=== PATIENT | female | born 1950 | race Caucasian/White ===

== ENCOUNTER → 2018-03-07 07:13 | Outpatient (CLI) | payer MEDICARE, OTHER, SELFPAY ==
[2018-03-07 08:17] LABS: Add Manual Diff / Slide Review NO; Appearance Urine UA CLEAR; Basophils Percent Auto 1.8 % (0-2); Bilirubin Urine UA NEGATIVE (NEGATIVE); Color Urine UA YELLOW; Eosinophils Percent Auto 10.2 % (2-4); Glucose Urine UA NEGATIVE (Normal); Hematocrit 40.2 % (36-46); Hemoglobin 13.2 g/dL (12.0-16.0); Ketones Urine UA NEGATIVE (NEGATIVE); Leukocyte Esterase Urine UA NEGATIVE (NEGATIVE); Lymphocytes Percent Auto 32.4 % (25-40); Mean Corpuscular HGB Conc 32.9 % (30-36); Mean Corpuscular Hemoglobin 34.2 PG (26-34); Mean Corpuscular Volume 103.9 fL (80-100); Monocytes Percent Auto 9.2 % (3-14); Neutrophils Absolute Auto 2100 /uL (3000-5900); Neutrophils Percent Auto 46.4 % (50-75); Nitrite Urine UA Negative (Negative); Occult Blood Urine UA TRACE-INTACT (Negative); Platelet Count 261 X10^3/uL (150-400); Protein Urine UA NEGATIVE (Negative); Red Blood Cell Count 3.86 X10^6/uL (4.0-5.2); Red Cell Distribution Width 13.2 % (11.6-14.8); Specific Gravity Urine UA 1.015 (1.000-1.035); Urobilinogen Urine UA 0.2 E.U./dL (0.2); White Blood Cell Count 4.5 X10^3/uL (4.5-11.0)
[2018-03-07 08:32] LABS: Alanine Aminotransferase 22 IU/L (9-52); Albumin 4.1 g/dL (3.5-5.0); Albumin Globulin Ratio 1.4 (1.0-2.8); Alkaline Phosphatase 61 U/L (38-126); Aspartate Aminotransferase 30 IU/L (14-36); BUN Creatinine Ratio 17.5 (6-22); Bilirubin Total 0.4 mg/dL (0.2-1.3); Blood Urea Nitrogen 14 mg/dL (7-17); Calcium 9.7 mg/dL (8.4-10.2); Carbon Dioxide 34 mmol/L (22-32); Chloride 106 mmol/L (98-107); Cholesterol 190 mg/dL (140-199); Estimated Glomerular Filt Rate > 60.0 mL/min (>60); Glucose 97 mg/dL (80-110); HDL Cholesterol 71 mg/dL (40-60); HEMOLYSIS < 15 (0-50); LDL Cholesterol Calculated 106 mg/dL (<100); Potassium 4.7 mmol/L (3.4-5.1); Sodium 148 mmol/L (137-145); Total Protein 7.1 g/dL (6.3-8.2); Triglycerides 66 mg/dL (35-150)
[2018-03-07 09:29] LABS: Thyroid Stimulating Hormone 4.17 uIU/mL (0.47-4.68)
== END ==
PROVIDERS: PCP Family Medicine; Visit Provider Family Medicine
DX: E78.5 Hyperlipidemia, unspecified (principal); Z51.81 Encounter for therapeutic drug level monitoring
CPT/HCPCS: 36415; 80053; 80061; 81003; 84443; 85025

== ENCOUNTER → 2018-11-18 09:11 | Outpatient (CLI) | payer MEDICARE, OTHER, SELFPAY ==
--- NOTE | 2018-11-18 | DI.MG.S_ITS ---
BILATERAL DIGITAL SCREENING MAMMOGRAM 3D/2D WITH CAD: 11/18/2018 CLINICAL: Routine screening. Comparison is made to exams dated: 11/13/2017 mammogram, 11/12/2016 mammogram - [facility], and 11/11/2015 mammogram - [facility]. There are scattered fibroglandular elements in both breasts. Current study was also evaluated with a Computer Aided Detection (CAD) system. No significant masses, calcifications, or other findings are seen in either breast. There has been no significant interval change. IMPRESSION: NEGATIVE There is no mammographic evidence of malignancy. A 1 year screening mammogram is recommended. This exam was interpreted at Station ID: [id number]. NOTE: For mammograms, a report in lay terms will be sent to the patient. Approximately 15% of breast malignancies will not be visualized mammographically. In the management of a palpable breast mass, a negative mammogram must not discourage biopsy of a clinically suspicious lesion. Electronically Signed By: David cline/murray:11/18/2018 11:30:46 letter sent: Normal Exam ACR BI-RADS Category 1: Negative 3341F
== END ==
PROVIDERS: Family Provider Family Medicine; PCP Family Medicine; Visit Provider Family Medicine
DX: Z12.31 Encounter for screening mammogram for malignant neoplasm of breast (principal)
CPT/HCPCS: 77063; 77067

== ENCOUNTER → 2019-05-05 08:10 | Outpatient (CLI) | payer MEDICARE, OTHER, SELFPAY ==
[2019-05-05 08:56] LABS: Appearance Urine UA CLEAR; Bilirubin Urine UA NEGATIVE (NEGATIVE); Color Urine UA YELLOW; Glucose Urine UA NEGATIVE (Negative); Ketones Urine UA NEGATIVE (NEGATIVE); Leukocyte Esterase Urine UA NEGATIVE (NEGATIVE); Nitrite Urine UA NEGATIVE (Negative); Occult Blood Urine UA TRACE-INTACT (Negative); Protein Urine UA NEGATIVE (Negative); Specific Gravity Urine UA <=1.005 (1.000-1.035); Urobilinogen Urine UA 0.2 E.U./dL (0.2)
[2019-05-05 08:59] LABS: pH Urine UA 6.5 (4.5-8.0)
[2019-05-05 09:02] LABS: Alanine Aminotransferase 18 IU/L (<35); Albumin 3.9 g/dL (3.5-5.0); Albumin Globulin Ratio 1.4 (1.0-2.8); Alkaline Phosphatase 65 U/L (38-126); Aspartate Aminotransferase 34 IU/L (14-36); Bilirubin Total 0.3 mg/dL (0.2-1.3); Blood Urea Nitrogen 16 mg/dL (7-17); Calcium 9.2 mg/dL (8.4-10.2); Carbon Dioxide 27 mmol/L (22-32); Chloride 104 mmol/L (98-107); Cholesterol 189 mg/dL (140-199); Estimated Glomerular Filt Rate > 60.0 mL/min (>60); Globulin 2.8 g/dL (1.7-4.1); Glucose 96 mg/dL (80-110); HDL Cholesterol 66 mg/dL (40-60); HEMOLYSIS < 15 (0-50); LDL Cholesterol Calculated 111 mg/dL (<100); Potassium 4.3 mmol/L (3.4-5.1); Sodium 137 mmol/L (137-145); Total Protein 6.7 g/dL (6.3-8.2); Triglycerides 61 mg/dL (35-150)
[2019-05-05 09:05] LABS: Hematocrit 36.8 % (36-46); Hemoglobin 12.4 g/dL (12.0-16.0); Mean Corpuscular HGB Conc 33.6 % (30-36); Mean Corpuscular Hemoglobin 33.3 PG (26-34); Mean Corpuscular Volume 99.2 fL (80-100); Platelet Count 288 X10^3/uL (150-400); Red Blood Cell Count 3.71 X10^6/uL (4.0-5.2); Red Cell Distribution Width 13.7 % (11.6-14.8); White Blood Cell Count 5.3 X10^3/uL (4.5-11.0)
[2019-05-05 09:32] LABS: Thyroid Stimulating Hormone 2.76 uIU/mL (0.47-4.68)
[2019-05-05 09:37] LABS: Neutrophils Absolute Manual 3498 /uL (3000-5900); Total Cells Counted 100
[2019-05-05 09:38] LABS: RBC Morphology Normal Morphology
== END ==
PROVIDERS: PCP Family Medicine; Visit Provider Family Medicine
DX: Z13.220 Encounter for screening for lipoid disorders (principal); Z13.29 Encounter for screening for other suspected endocrine disorder; Z51.81 Encounter for therapeutic drug level monitoring; G43.909 Migraine, unspecified, not intractable, without status migrainosus; E78.5 Hyperlipidemia, unspecified
CPT/HCPCS: 36415; 80053; 80061; 81003; 84443; 85025

== ENCOUNTER → 2019-06-18 09:10 | Outpatient (CLI) | payer MEDICARE, OTHER, SELFPAY | PROVIDERS: PCP Family Medicine; Visit Provider Family Medicine | DX: Z00.00 Encounter for general adult medical examination without abnormal findings (principal); M85.852 Other specified disorders of bone density and structure, left thigh; Z78.0 Asymptomatic menopausal state; Z82.62 Family history of osteoporosis | CPT/HCPCS: 77080 ==

== ENCOUNTER → 2019-12-29 08:33 | Outpatient (CLI) | payer MEDICARE, OTHER, SELFPAY ==
--- NOTE | 2019-12-29 | DI.MG.S_ITS ---
BILATERAL DIGITAL SCREENING MAMMOGRAM 3D/2D WITH CAD: 12/29/2019 Comparison is made to exams dated: 11/18/2018 mammogram, 11/13/2017 mammogram, 11/12/2016 mammogram - [facility], 11/11/2015 mammogram, 11/09/2014 mammogram, and 08/19/2012 mammogram - [facility]. There are scattered fibroglandular elements in both breasts. Current study was also evaluated with a Computer Aided Detection (CAD) system. No significant masses, calcifications, or other findings are seen in either breast. There has been no significant interval change. IMPRESSION: NEGATIVE There is no mammographic evidence of malignancy. A 1 year screening mammogram is recommended. This exam was interpreted at Station ID: [id number]. NOTE: For mammograms, a report in lay terms will be sent to the patient. Approximately 15% of breast malignancies will not be visualized mammographically. In the management of a palpable breast mass, a negative mammogram must not discourage biopsy of a clinically suspicious lesion. Electronically Signed By: Basil wyatt/murray:12/29/2019 09:48:52 letter sent: Normal Exam ACR BI-RADS Category 1: Negative 3341F
== END ==
PROVIDERS: PCP Nurse Practitioner; Referring Provider Nurse Practitioner; Visit Provider Nurse Practitioner
DX: Z12.31 Encounter for screening mammogram for malignant neoplasm of breast (principal)
CPT/HCPCS: 77063; 77067

== ENCOUNTER → 2020-04-24 08:28 | Outpatient (CLI) | payer MEDICARE, OTHER, SELFPAY ==
[2020-04-25 16:05] LABS: COVID19 Sendout Not Detected (Not Detect)
== END ==
PROVIDERS: PCP Nurse Practitioner; Visit Provider Physician Assistant
DX: Z11.59 Encounter for screening for other viral diseases (principal)
CPT/HCPCS: 87635

== ENCOUNTER 2020-04-27 07:20 | Day surgery (SDC) | payer MEDICARE, OTHER, SELFPAY ==
[2020-04-27] VITALS (7 sets, daily range): BP systolic 105–121; BP diastolic 35–76; PULSE 58–79; RESP 12–16; TEMP 36.6–37.4; O2SAT 96–99; BMI 24.0
[2020-04-27] MEDS: SODIUM CHLORIDE 0.9% 1,000 ML 70 ML IV (07:55)
--- NOTE | 2020-04-27 08:09 | PM.HP.1 ---
History of Present Illness History of Present Illness Date Patient Seen: 04/27/20 Time Patient Seen: 08:09 Chief complaint: SDC Narrative: Patient is a 70 year old female who presented for colonoscopy. She has a known history of ulcerative proctitis. She was having worsening March however these have improved. She is due for surveillance. Patient History Medical History Anemia (Chronic 1971) Chickenpox (Resolved) Gastric ulcer (Resolved 1974) Measles (Resolved) Migraines (Chronic 1970) Osteopenia (Chronic ~2009) Recurrent sinusitis (Chronic ~2000) Ulcerative colitis (Resolved 1971) Wrist fracture, left (Resolved 2009) Surgical History History of surgery on arm (Resolved 2009) Hx of eye surgery (Resolved 1953) Status post appendectomy (~2013) Status post delivery (1976) Family & Social History Family History Father Cancer Mother Alzheimer's disease Grandfather Cancer Grandmother Stroke Social History: household members spouse Tobacco & Substance use: Smoking Status Never smoker alcohol intake current alcohol intake frequency a few times a week Substance Use Type does not use Meds Home Medications and Allergies Home Medications Medication Instructions Recorded Confirmed Type propranolol 40 mg tablet 120 mg PO QDAY #270 tab 01/23/19 04/27/20 Rx varicella-zoster [id number] (PF) 50 0.5 ml IM ONCE #1 each 06/09/19 04/27/20 Rx mcg/0.5 mL IM susp, kit sumatriptan succinate 50 mg tablet See Rx Instructions PO .COMPLEX 08/27/19 04/27/20 Rx #27 tab ipratropium bromide 42 mcg (0.06 See Rx Instructions INTRANASAL BID 10/07/19 04/27/20 Rx %) nasal spray #45 ml Allergies Allergy/AdvReac Type Severity Reaction Status Date / Time butorphanol [From STADOL] Allergy Severe decreases Verified 04/27/20 07:31 breaths Review of Systems Review of Systems ROS: Yes All systems reviewed with the patient and are negative except as otherwise documented Exam Vital Signs (past 8 hours): - 04/27/20 07:43 Temperature 99.4 F Pulse Rate 79 Respiratory Rate 16 Blood Pressure 117/59 L Pulse Oximetry 96 Oxygen Delivery Method Room Air Const General: cooperative, healthy appearing, comfortable, well developed and well groomed Nutritional Appearance: average body habitus and well nourished Orientation: alert, awake and oriented x3 HENMT Head: normocephalic and atraumatic Eyes General: appearance normal, both eyes and all related structures Resp Effort & Inspection: normal respiratory effort and able to speak in complete sentences Auscultation: clear to auscultation bilaterally Cardio Rate: regular rate Rhythm: regular rhythm Heart Sounds: S1 normal and S2 normal GI Palpation: soft Auscultation: normal bowel sounds Extrem Right lower extremity: no edema Left lower extremity: no edema Psych Appearance: grossly normal and well kempt Mental Status: mental status grossly normal Assessment & Plan Assessment & Plan narrative: 1. History of proctitis Colonoscopy today, further recommendations to follow
[2020-04-27] MEDS: MIDAZOLAM 5 MG/5 ML VIAL IV (08:27)
[2020-04-27] MEDS: fentaNYL 250 MCG/5 ML INJ IV (08:27)
--- NOTE | 2020-04-27 08:48 | PM.OP.ENDO ---
Operative Date/Time/Diagnoses Date of procedure: 04/27/20 Time of procedure: 08:22 Procedure Notes Procedure in detail: Surgeon: Isabella White DO Procedure: Colonoscopy Preoperative diagnosis: 1. History of ulcerative proctitis Postoperative diagnosis: 1. Rectal stenosis 2. Poor preparation, solid stool Medications: Conscious sedation using 5.5 mg IV of Midazolam and 125 mcg IV of Fentanyl Preanesthesia Assessment An H and P was performed/updated and the Px?s ASA class is 2. The procedure was discussed in detail with the patient. The potential risks and complications including infection, bleeding, missed lesions, perforation, need for surgery in case of perforation, prolonged hospital stay, and were explained. A brief question and answer period was allotted and once all questions were answered, informed consent was obtained. The patient was brought back to the procedure room and placed on standard monitoring. The patient?s vital signs were monitored continuously throughout the entire procedure. Prior to starting, a timeout was performed to confirm the patient?s identity, allergies, medications, and procedure. Procedure in detail The patient was placed in left lateral decubitus position and once adequate sedation was obtained a KENISHA was performed. The digital rectal examination did not reveal any palpable lesions, however significant anal stenosis was noted. The tip of the colonoscope was placed in the stenosis anal canal and advanced with some difficulty difficulty, he was noted to have a tortuous colon abdominal pressure was applied. The procedure was aborted and the ascending colon due to poor preparation and solid stool. Visible mucosa throughout the colon appeared unremarkable, however biopsies were not obtained due to poor preparation. Bleeding in the rectum was noted due to dilation of the rectal stenosis with the digital rectal exam and scope passage. The patient tolerated the procedure well and will be brought back to the recovery area to be discharged once criteria are met. The prep was judged to be poor -solid stool noted and multiple areas of the colon. The total physician intraservice time was 21min. Complications There were no complications and estimated blood loss was minimal. Recommendations: Resume previous diet Continue outPx medications Repeat colonoscopy to be scheduled due to poor preparation Office follow up prior to repeat colonoscopy discussed at sequential anal dilation is needed. An emergency contact number was given to the patient for any complications related to the procedure
--- NOTE | 2020-04-27 08:50 | SUR.PHASEI ---
Received to PACU after MAC. Report received from RERE Ventura.
--- NOTE | 2020-04-27 09:35 | SUR.PHASEII ---
brought in, d/c instructions discussed, both voiced an understanding. Dr. Flanagan in to speak with pt.
--- NOTE | 2020-04-27 09:39 | SUR.PHASEII ---
Pt ready to go, belly soft, no nausea no pain, pt left in stable condition.
== END 2020-04-27 09:45 | disposition home or self-care (01) ==
PROVIDERS: PCP Nurse Practitioner; Referring Provider Nurse Practitioner; Visit Provider Student in an Organized Health Care Education/Training Program
PROC: 0DJD8ZZ Inspection of Lower Intestinal Tract, Via Natural or Artificial Opening Endoscopic (ICD-10-PCS; CPT 45378; principal; 2020-04-27 08:30)
DX: Z87.19 Personal history of other diseases of the digestive system (principal); Z09 Encounter for follow-up examination after completed treatment for conditions other than malignant neoplasm; D64.9 Anemia, unspecified; K62.4 Stenosis of anus and rectum
CPT/HCPCS: 45378; J2250; J3010

== ENCOUNTER → 2020-07-11 14:54 | Outpatient (CLI) | payer MEDICARE, OTHER, SELFPAY ==
[2020-07-11 16:51] LABS: COVID19 -Nasal RAPID Negative (Negative)
== END ==
PROVIDERS: PCP Nurse Practitioner; Visit Provider Physician Assistant
DX: Z01.812 Encounter for preprocedural laboratory examination (principal); Z20.822 Contact with and (suspected) exposure to COVID-19
CPT/HCPCS: 87635; C9803

== ENCOUNTER 2020-07-13 12:45 | Day surgery (SDC) | payer MEDICARE, OTHER, SELFPAY ==
[2020-07-13] VITALS (7 sets, daily range): BP systolic 94–118; BP diastolic 50–68; PULSE 48–85; RESP 10–20; TEMP 36.3–36.9; O2SAT 95–100; BMI 24.0
--- NOTE | 2020-07-13 | PATH_ITS ---
[facility] Accession Number: [id number] . 01 Material submitted: . PART A: colon - RIGHT COLON BIOPSY PART B: colon - TRANSVERSE COLON BIOPSY PART C: colon - LEFT COLON BIOPSY PART D: colon - RECTAL-SIGMOID BIOPSY . 02 Diagnosis: A-D. Right, Transverse, Left, Rectosigmoid Colon, Biopsies: Colonic mucosa with no diagnostic abnormality. Negative for active, chronic, and microscopic colitis. Negative for dysplasia and malignancy. . [facility] 07/15/2020 1543 Local . 02 Electronically signed: . Ivan Luz MD, PhD, Pathologist NPI- [id number] . 01 Gross description: . Part A: RIGHT COLON BIOPSY: Received in formalin are 4 fragment(s) of terry, soft tissue measuring 0.1 x 0.1 x 0.1 cm to 0.2 x 0.1 x 0.1 cm submitted entirely in 1 cassette(s) Part B: TRANSVERSE COLON BIOPSY: Received in formalin is 1 fragment(s) of terry, soft tissue measuring 0.2 x 0.2 x 0.2 cm submitted entirely in 1 cassette(s) Part C: LEFT COLON BIOPSY: Received in formalin are 3 fragment(s) of terry, soft tissue measuring 0.1 x 0.1 x 0.1 cm to 0.3 x 0.2 x 0.2 cm submitted entirely in 1 cassette(s) Part D: RECTAL-SIGMOID BIOPSY: Received in formalin are 4 fragment(s) of terry, soft tissue measuring 0.1 x 0.1 x 0.1 cm to 0.3 x 0.2 x 0.2 cm submitted entirely in 1 cassette(s) /EBEN 07/14/2020 2019 Local . 02 Pathologist provided ICD-10: K62.4 . 02 CPT . 168005, 261126, 568308, 682249 Performed at: 01 [facility] [address] [id number] MD Sunny Huerta MD Phone: [phone] Performed at: [facility] [address] [address] [place], [place] [id number] MD Blanca Artis MD Phone: [phone]
[2020-07-13] MEDS: SODIUM CHLORIDE 0.9% 1,000 ML 84 ML IV (13:24)
--- NOTE | 2020-07-13 14:52 | P.OP.ENDO_ITS ---
Operative Date/Time/Diagnoses Date of procedure: 07/13/20 Pre-op diagnosis: See indication and findings Procedure & Clinicians Study performed: Colonoscopy and anal dilation Same procedure as scheduled: Yes Indications: Anal stenosis and history of ulcerative proctitis need for further evaluation. Family history of colon cancer in her father Surgeon: Telma Pat Procedure Notes Procedure in detail: After informed consent was obtained the patient was placed in left lateral decubitus position. Rectal exam was performed and was very difficult and tight. Dilation was performed with 1 finger (SIBO). At this point the colonoscope could be substituted was introduced and passed to the cecum. On slow withdrawal mucosa was carefully examined. Preparation was good. Scope was removed. Patient tolerated procedure well. Blood loss minimal Complications none Sedation Anesthesia with MAC Findings 1. Very tight anal stenosis barely able to admit of finger tip. Slowly I performed dilation with my 1st finger. I sensed 3 different stenoses. I was able to get all of these dilated up to the size of the base semi 1st finger. Evaluation with the colonoscope indicated the expected post dilation tear is a. Bleeding was minimal. 2. In addition to the stenoses the rectum was small. There was old scarring and inflammation and given the amount of tearing present I did not do any biopsies in the rectum. 3. Otherwise negative colonoscopy to cecum. Mucosa however did seem a bit fri able and bled easily with contact. Two biopsies were taken every 10 cm in the right transverse and left colon. aGvi will have follow-up with me by telehealth within 2 weeks. She has to go back on her similar regimen. I did consider doing a bougie dilation to get up to a somewhat higher size. We will see how she tolerates this dilation and whether we should dilate further.
--- NOTE | 2020-08-24 10:39 | PM.HP.1 ---
History of Present Illness History of Present Illness Date Patient Seen: 07/13/20 Chief complaint: SDC Narrative: History of ulcerative proctitis Patient History Medical History Anemia (1971) Chickenpox Gastric ulcer (1974) Measles Migraines (1970) Osteopenia (~2009) Recurrent sinusitis (~2000) Ulcerative colitis (1971) Wrist fracture, left (2009) Surgical History History of surgery on arm (2009) Hx of eye surgery (1953) Status post appendectomy (~2013) Status post delivery (1976) Family & Social History Family History Father Cancer Mother Alzheimer's disease Grandfather Cancer Grandmother Stroke Social History: household members spouse Tobacco & Substance use: Smoking Status Never smoker alcohol intake current alcohol intake frequency a few times a week Substance Use Type does not use Meds Home Medications and Allergies Home Medications Medication Instructions Recorded Confirmed Type ipratropium bromide 42 mcg (0.06 See Rx Instructions INTRANASAL BID 07/28/20 Rx %) nasal spray #45 ml propranolol 40 mg tablet 120 mg PO QDAY #270 tab 07/28/20 Rx sumatriptan succinate 50 mg tablet See Rx Instructions PO .COMPLEX 08/04/20 Rx PRN #27 tab Allergies Allergy/AdvReac Type Severity Reaction Status Date / Time butorphanol [From STADOL] Allergy Severe decreases Verified 07/13/20 12:59 breaths Exam Vital Signs (past 8 hours): Oxygen Delivery Method Room Air Narrative Exam Narrative: Oropharynx free of lesions Chest clear to auscultation percussion Cardiac exam reveals no S3 or murmur Assessment & Plan Assessment & Plan narrative: History of ulcerative proctitis with previous poor prep. Need for full colonoscopy 2. History of anal stenosis possibly from recurring anal fissures over time due to chronic constipation and straining need for manual dilation. Risks, benefits, alternatives have been explained.
== END 2020-07-13 15:33 | disposition home or self-care (01) ==
PROVIDERS: PCP Nurse Practitioner; Referring Provider Nurse Practitioner; Visit Provider Internal Medicine Gastroenterology
PROC: 0DJD8ZZ Inspection of Lower Intestinal Tract, Via Natural or Artificial Opening Endoscopic (ICD-10-PCS; CPT 45378; principal; 2020-07-13 14:00)
DX: Z09 Encounter for follow-up examination after completed treatment for conditions other than malignant neoplasm (principal); Z87.19 Personal history of other diseases of the digestive system; K59.09 Other constipation; K62.4 Stenosis of anus and rectum
CPT/HCPCS: 45378

== ENCOUNTER → 2020-08-02 06:58 | Outpatient (CLI) | payer MEDICARE, OTHER, SELFPAY ==
[2020-08-02 08:01] LABS: Alanine Aminotransferase 15 IU/L (<35); Albumin Globulin Ratio 1.4 (1.0-2.8); Alkaline Phosphatase 58 U/L (38-126); Aspartate Aminotransferase 35 IU/L (14-36); BUN Creatinine Ratio 18.7 (6-22); Bilirubin Total 0.3 mg/dL (0.2-1.3); Blood Urea Nitrogen 17 mg/dL (7-17); Calcium 9.2 mg/dL (8.4-10.2); Carbon Dioxide 30 mmol/L (22-32); Chloride 103 mmol/L (98-107); Estimated Glomerular Filt Rate > 60.0 mL/min (>60); Globulin 2.9 g/dL (1.7-4.1); Glucose 101 mg/dL (80-110); HEMOLYSIS < 15 (0-50); Potassium 3.8 mmol/L (3.4-5.1); Sodium 137 mmol/L (137-145); Total Protein 6.9 g/dL (6.3-8.2)
[2020-08-02 08:08] LABS: Creatinine Urine Random 185.7 mg/dL
[2020-08-02 08:37] LABS: Thyroid Stimulating Hormone 3.79 uIU/mL (0.47-4.68)
== END ==
PROVIDERS: PCP Nurse Practitioner; Referring Provider Nurse Practitioner; Visit Provider Nurse Practitioner
DX: I10 Essential (primary) hypertension (principal); Z13.6 Encounter for screening for cardiovascular disorders
CPT/HCPCS: 36415; 80053; 82043; 82570; 84443

== ENCOUNTER → 2020-08-05 11:55 | Outpatient (CLI) | payer MEDICARE, OTHER, SELFPAY ==
[2020-08-05 13:05] LABS: Appearance Urine UA CLEAR; Bilirubin Urine UA NEGATIVE (NEGATIVE); Color Urine UA YELLOW; Glucose Urine UA NEGATIVE (Negative); Ketones Urine UA NEGATIVE (NEGATIVE); Leukocyte Esterase Urine UA TRACE (NEGATIVE); Nitrite Urine UA NEGATIVE (Negative); Occult Blood Urine UA TRACE-INTACT (Negative); Protein Urine UA NEGATIVE (Negative); Specific Gravity Urine UA <=1.005 (1.000-1.035); Urobilinogen Urine UA 0.2 E.U./dL (0.2)
[2020-08-05 13:25] LABS: pH Urine UA 6.5 (4.5-8.0)
[2020-08-05 13:29] LABS: RBC Urine 0-1/HPF (0-5/HPF); Squamous Epithelial Cell Urine 0-1 /HPF (0-5/HPF); WBC Urine 0-1/HPF (0-5/HPF)
[2020-08-05 13:30] LABS: Bacteria Urine Occasional (0-1); Culture Indicated Urine Specimen Cultured
== END ==
PROVIDERS: PCP Nurse Practitioner; Referring Provider Nurse Practitioner; Visit Provider Nurse Practitioner
DX: R82.90 Unspecified abnormal findings in urine (principal)
CPT/HCPCS: 81001; 87086

== ENCOUNTER → 2020-08-17 10:57 | Outpatient (CLI) | payer MEDICARE, OTHER, SELFPAY ==
[2020-08-17 16:09] LABS: Microalbumin Urine Random < 0.6 mg/dL (0-1.6)
== END ==
PROVIDERS: PCP Nurse Practitioner; Referring Provider Nurse Practitioner; Visit Provider Nurse Practitioner
DX: I10 Essential (primary) hypertension (principal); Z13.6 Encounter for screening for cardiovascular disorders
CPT/HCPCS: 82043; 82570

== ENCOUNTER → 2020-12-29 08:17 | Outpatient (CLI) | payer MEDICARE, OTHER, SELFPAY ==
--- NOTE | 2020-12-29 | DI.MG.S_ITS ---
BILATERAL DIGITAL SCREENING MAMMOGRAM 3D/2D WITH CAD: 12/29/2020 CLINICAL: Routine screening. Comparison is made to exams dated: 12/29/2019 mammogram, 11/18/2018 mammogram, and 11/13/2017 mammogram - [facility]. There are scattered fibroglandular elements in both breasts. Current study was also evaluated with a Computer Aided Detection (CAD) system. No significant masses, calcifications, or other findings are seen in either breast. There has been no significant interval change. IMPRESSION: NEGATIVE There is no mammographic evidence of malignancy. A 1 year screening mammogram is recommended. This exam was interpreted at Station ID: [id number]. NOTE: For mammograms, a report in lay terms will be sent to the patient. Approximately 15% of breast malignancies will not be visualized mammographically. In the management of a palpable breast mass, a negative mammogram must not discourage biopsy of a clinically suspicious lesion. Electronically Signed By: Jaylen Varner M.D., jr/murray:12/29/2020 13:09:01 letter sent: Normal Exam ACR BI-RADS Category 1: Negative 3341F
== END ==
PROVIDERS: PCP Nurse Practitioner; Referring Provider Nurse Practitioner; Visit Provider Nurse Practitioner
DX: Z12.31 Encounter for screening mammogram for malignant neoplasm of breast (principal)
CPT/HCPCS: 77063; 77067

== ENCOUNTER → 2021-06-19 12:29 | Outpatient (CLI) | payer MEDICARE, OTHER, SELFPAY ==
--- NOTE | 2021-06-19 12:31 | DI.RAD.S_ITS ---
PROCEDURE: XR DEXA AXIAL SKELETON INDICATIONS: menopause, osteopenia COMPARISON: [facility], CR, XR DEXA AXIAL SKELETON, 06/18/2019, 9:34. FINDINGS: This blank DEXA report has been sent in error by the PACS system. The correct and complete report will be forthcoming in 1-2 days. Thank you for your patience and understanding. Dictated by: Adelia Law MD, PhD on 06/19/2021 at 16:48 Approved by: Adleia Law MD, PhD on 06/19/2021 at 16:48
== END ==
PROVIDERS: PCP Nurse Practitioner; Referring Provider Nurse Practitioner; Visit Provider Nurse Practitioner
DX: M81.0 Age-related osteoporosis without current pathological fracture; Z78.0 Asymptomatic menopausal state
CPT/HCPCS: 77080

== ENCOUNTER → 2022-01-02 09:03 | Outpatient (CLI) | payer MEDICARE, OTHER, SELFPAY ==
--- NOTE | 2022-01-02 | DI.MG.S_ITS ---
BILATERAL DIGITAL SCREENING MAMMOGRAM 3D/2D WITH CAD: 01/02/2022 CLINICAL: Routine screening. Comparison is made to exams dated: 12/29/2020 mammogram, 12/29/2019 mammogram, 11/18/2018 mammogram, 11/13/2017 mammogram, and 11/12/2016 mammogram - [facility]. There are scattered fibroglandular elements in both breasts. Current study was also evaluated with a Computer Aided Detection (CAD) system. No significant masses, calcifications, or other findings are seen in either breast. There has been no significant interval change. IMPRESSION: NEGATIVE There is no mammographic evidence of malignancy. A 1 year screening mammogram is recommended. Based on the Tyrer Cuzick model (a risk assessment model) the patient's lifetime risk is 4.9% and her 10 year risk is 2.9%. According to the ACR, ACS, and NCCN guidelines, an annual breast MRI exam along with mammogram is recommended if the patient's lifetime risk is 20% or greater. This exam was interpreted at Station ID: [id number]. NOTE: For mammograms, a report in lay terms will be sent to the patient. Approximately 15% of breast malignancies will not be visualized mammographically. In the management of a palpable breast mass, a negative mammogram must not discourage biopsy of a clinically suspicious lesion. Electronically Signed By: Basil wyatt/murray:01/02/2022 10:27:14 letter sent: Normal Exam ACR BI-RADS Category 1: Negative 3341F
== END ==
PROVIDERS: PCP Nurse Practitioner; Referring Provider Nurse Practitioner; Visit Provider Nurse Practitioner
DX: Z12.31 Encounter for screening mammogram for malignant neoplasm of breast (principal)
CPT/HCPCS: 77063; 77067

== ENCOUNTER → 2022-06-20 12:33 | Outpatient (CLI) | payer MEDICARE, OTHER, SELFPAY ==
--- NOTE | 2022-06-20 12:34 | DI.RAD.S_ITS ---
PROCEDURE: XR DEXA AXIAL SKELETON INDICATIONS: worsening osteoporisis COMPARISON: [facility], CR, XR DEXA AXIAL SKELETON, 06/19/2021, 12:56. [facility], CR, XR DEXA AXIAL SKELETON, 06/18/2019, 9:34. FINDINGS: This blank DEXA report has been sent in error by the PACS system. The correct and complete report will be forthcoming in 1-2 days. Thank you for your patience and understanding. Dictated by: Mayuri Jarrett M.D. on 06/20/2022 at 13:03 Approved by: Mayuri Jarrett M.D. on 07/06/2022 at 11:00
== END ==
PROVIDERS: PCP Nurse Practitioner; Referring Provider Nurse Practitioner; Visit Provider Nurse Practitioner
DX: M81.0 Age-related osteoporosis without current pathological fracture (principal); Z79.83 Long term (current) use of bisphosphonates
CPT/HCPCS: 77080

== ENCOUNTER → 2022-11-01 06:51 | Outpatient (CLI) | payer MEDICARE, OTHER, SELFPAY ==
[2022-11-01 08:25] LABS: Appearance Urine UA CLEAR; Bilirubin Urine UA NEGATIVE (NEGATIVE); Color Urine UA YELLOW; Glucose Urine UA NEGATIVE (Negative); Ketones Urine UA NEGATIVE (NEGATIVE); Leukocyte Esterase Urine UA NEGATIVE (NEGATIVE); Nitrite Urine UA NEGATIVE (Negative); Occult Blood Urine UA TRACE-INTACT (Negative); Protein Urine UA NEGATIVE (Negative); Specific Gravity Urine UA 1.015 (1.000-1.035); Urobilinogen Urine UA 0.2 E.U./dL (0.2)
[2022-11-01 08:34] LABS: Add Manual Diff / Slide Review NO; Basophils Absolute Auto 100 /uL (0-100); Basophils Percent Auto 2.3 % (0-2); Eosinophils Absolute Auto 300 /uL (0-450); Eosinophils Percent Auto 8.8 % (2-4); Hematocrit 35.1 % (36-46); Hemoglobin 11.7 g/dL (12.0-16.0); Lymphocytes Absolute Auto 1300 /uL (1100-4500); Lymphocytes Percent Auto 36.6 % (25-40); Mean Corpuscular HGB Conc 33.4 % (30-36); Mean Corpuscular Hemoglobin 32.4 PG (26-34); Mean Corpuscular Volume 96.9 fL (80-100); Monocytes Absolute Auto 300 /uL (0-900); Monocytes Percent Auto 8.4 % (3-14); Neutrophils Absolute Auto 1600 /uL (1500-7000); Neutrophils Percent Auto 43.9 % (50-75); Platelet Count 233 X10^3/uL (150-400); Red Blood Cell Count 3.62 X10^6/uL (4.0-5.2); Red Cell Distribution Width 14.6 % (11.6-14.8); White Blood Cell Count 3.6 X10^3/uL (4.5-11.0)
[2022-11-01 08:43] LABS: Bacteria Urine None Seen; Culture Indicated Urine Cult Not Indicated; RBC Urine 0-1/HPF (0-5/HPF); Squamous Epithelial Cell Urine 0-1 /HPF (0-5/HPF); WBC Urine 0-1/HPF (0-5/HPF)
[2022-11-01 09:19] LABS: Alanine Aminotransferase 23 IU/L (<35); Albumin 3.8 g/dL (3.5-5.0); Albumin Globulin Ratio 1.3 (1.0-2.8); Alkaline Phosphatase 59 U/L (38-126); Aspartate Aminotransferase 41 IU/L (14-36); Bilirubin Total 0.2 mg/dL (0.2-1.3); Blood Urea Nitrogen 15 mg/dL (7-17); Calcium 8.8 mg/dL (8.4-10.2); Carbon Dioxide 29 mmol/L (22-32); Chloride 104 mmol/L (98-107); Cholesterol 203 mg/dL (140-199); Estimated Glomerular Filt Rate > 60 mL/min (>60); Glucose 90 mg/dL (80-110); HDL Cholesterol 69 mg/dL (40-60); HEMOLYSIS < 15 (0-50); LDL Cholesterol Calculated 123 mg/dL (<100); Potassium 4.2 mmol/L (3.4-5.1); Sodium 140 mmol/L (137-145); Total Protein 6.8 g/dL (6.3-8.2); Triglycerides 57 mg/dL (35-150)
[2022-11-01 09:25] LABS: Free T3, Triiodothyronine Free 3.96 pg/mL (2.77-5.27)
[2022-11-01 09:27] LABS: Creatinine Urine Random 89.2 mg/dL
[2022-11-01 09:31] LABS: Microalbumi Creatinin Ratio Ur 7.8 ug/mg CR (<30); Microalbumin Urine Random 0.7 mg/dL (0-1.6)
[2022-11-01 09:38] LABS: Thyroid Stimulating Hormone 2.43 uIU/mL (0.47-4.68)
[2022-11-01 16:40] LABS: Hep C Virus Ab w/Reflex Quant NEGATIVE s/c (NEGATIVE)
== END ==
PROVIDERS: PCP Nurse Practitioner; Referring Provider Nurse Practitioner; Visit Provider Nurse Practitioner
DX: E78.5 Hyperlipidemia, unspecified (principal); I10 Essential (primary) hypertension; D64.9 Anemia, unspecified; K51.90 Ulcerative colitis, unspecified, without complications; R19.7 Diarrhea, unspecified; M81.0 Age-related osteoporosis without current pathological fracture; Z11.59 Encounter for screening for other viral diseases
CPT/HCPCS: 36415; 80053; 80061; 81001; 82043; 82570; 84439; 84443; 84481; 85025; 86803

== ENCOUNTER → 2022-12-03 10:51 | Outpatient (CLI) | payer MEDICARE, OTHER, SELFPAY ==
[2022-12-03 13:16] LABS: HEMOLYSIS < 15 (0-50); Iron 89 ug/dL (37-170)
[2022-12-03 13:21] LABS: BUN Creatinine Ratio 16.7 (6-22); Blood Urea Nitrogen 15 mg/dL (7-17); Carbon Dioxide 27 mmol/L (22-32); Chloride 102 mmol/L (98-107); Estimated Glomerular Filt Rate > 60 mL/min (>60); Glucose 83 mg/dL (80-110); HEMOLYSIS < 15 (0-50); Sodium 136 mmol/L (137-145)
[2022-12-03 13:28] LABS: Percent Iron Saturation 26 % (15-50); Total Iron Binding Capacity 348 ug/dL (265-497); Transferrin 267 mg/dL (206-381)
[2022-12-03 13:50] LABS: Ferritin 7 ng/mL (11-264)
[2022-12-03 14:22] LABS: Folate 9.6 ng/mL (2.76-20.0); Vitamin B12 202 pg/mL (239-931)
== END ==
PROVIDERS: PCP Nurse Practitioner; Referring Provider Nurse Practitioner; Visit Provider Nurse Practitioner
DX: D64.9 Anemia, unspecified (principal); K51.90 Ulcerative colitis, unspecified, without complications
CPT/HCPCS: 36415; 80048; 82607; 82728; 82746; 83540; 83550

== ENCOUNTER → 2023-01-03 14:33 | Outpatient (CLI) | payer MEDICARE, OTHER, SELFPAY ==
--- NOTE | 2023-01-03 14:34 | DI.MG.S_ITS ---
BILATERAL DIGITAL SCREENING MAMMOGRAM 3D/2D WITH CAD: 01/03/2023 CLINICAL: Routine screening. Comparison is made to exams dated: 01/02/2022 mammogram, 12/29/2020 mammogram, and 12/29/2019 mammogram - [facility]. There are scattered areas of fibroglandular density in both breasts (category b / 25%-50% glandular tissue). Current study was also evaluated with a Computer Aided Detection (CAD) system. No significant masses, calcifications, or other findings are seen in either breast. There has been no significant interval change. IMPRESSION: NEGATIVE There is no mammographic evidence of malignancy. A 1 year screening mammogram is recommended. Based on the Tyrer Cuzick model (a risk assessment model) the patient's lifetime risk is 4.7% and her 10 year risk is 3.0%. According to the ACR, ACS, and NCCN guidelines, an annual breast MRI exam along with mammogram is recommended if the patient's lifetime risk is 20% or greater. This exam was interpreted at Station ID: [id number]. NOTE: For mammograms, a report in lay terms will be sent to the patient. Approximately 15% of breast malignancies will not be visualized mammographically. In the management of a palpable breast mass, a negative mammogram must not discourage biopsy of a clinically suspicious lesion. Electronically Signed By: Mohinder chisholm/murray:01/03/2023 15:48:09 letter sent: Normal Exam ACR BI-RADS Category 1: Negative 3341F
== END ==
PROVIDERS: PCP Nurse Practitioner; Referring Provider Nurse Practitioner; Visit Provider Nurse Practitioner
DX: Z12.31 Encounter for screening mammogram for malignant neoplasm of breast (principal)
CPT/HCPCS: 77063; 77067

== ENCOUNTER → 2023-03-07 07:35 | Outpatient (CLI) | payer MEDICARE, OTHER, SELFPAY ==
[2023-03-07 08:14] LABS: Hematocrit 35.7 % (36-46); Hemoglobin 11.9 g/dL (12.0-16.0); Mean Corpuscular HGB Conc 33.4 % (30-36); Mean Corpuscular Hemoglobin 32.7 PG (26-34); Mean Corpuscular Volume 98.2 fL (80-100); Platelet Count 261 X10^3/uL (150-400); Red Blood Cell Count 3.63 X10^6/uL (4.0-5.2); Red Cell Distribution Width 14.7 % (11.6-14.8); White Blood Cell Count 4.3 X10^3/uL (4.5-11.0)
[2023-03-07 08:38] LABS: Neutrophils Absolute Manual 2322 /uL (3000-5900); RBC Morphology Normal Morphology; Total Cells Counted 100
[2023-03-07 09:03] LABS: Ferritin 6 ng/mL (11-264)
[2023-03-07 09:17] LABS: Vitamin B12 > 1000 pg/mL (239-931)
== END ==
PROVIDERS: PCP Nurse Practitioner; Referring Provider Nurse Practitioner; Visit Provider Nurse Practitioner
DX: D64.9 Anemia, unspecified (principal)
CPT/HCPCS: 36415; 82607; 82728; 85025

== ENCOUNTER → 2023-05-16 06:55 | Outpatient (CLI) | payer MEDICARE, OTHER, SELFPAY ==
[2023-05-16 08:30] LABS: Add Manual Diff / Slide Review NO; Basophils Absolute Auto 100 /uL (0-100); Eosinophils Absolute Auto 400 /uL (0-450); Eosinophils Percent Auto 9.8 % (2-4); Hemoglobin 12.2 g/dL (12.0-16.0); Lymphocytes Absolute Auto 1200 /uL (1100-4500); Lymphocytes Percent Auto 32.6 % (25-40); Mean Corpuscular HGB Conc 32.9 % (30-36); Mean Corpuscular Hemoglobin 33.2 PG (26-34); Mean Corpuscular Volume 100.9 fL (80-100); Monocytes Absolute Auto 300 /uL (0-900); Monocytes Percent Auto 8.9 % (3-14); Neutrophils Absolute Auto 1700 /uL (1500-7000); Neutrophils Percent Auto 46.7 % (50-75); Platelet Count 263 X10^3/uL (150-400); Red Blood Cell Count 3.67 X10^6/uL (4.0-5.2); Red Cell Distribution Width 16.1 % (11.6-14.8); White Blood Cell Count 3.7 X10^3/uL (4.5-11.0)
[2023-05-16 09:26] LABS: HEMOLYSIS < 15 (0-50); Iron 63 ug/dL (37-170)
[2023-05-16 09:37] LABS: Percent Iron Saturation 23 % (15-50); Total Iron Binding Capacity 271 ug/dL (265-497); Transferrin 250 mg/dL (206-381)
[2023-05-16 09:53] LABS: Ferritin 19 ng/mL (11-264)
== END ==
PROVIDERS: Family Medicine; PCP Nurse Practitioner; Referring Provider Nurse Practitioner; Visit Provider Nurse Practitioner
DX: K51.90 Ulcerative colitis, unspecified, without complications (principal); E61.1 Iron deficiency
CPT/HCPCS: 36415; 82728; 83540; 83550; 85025

== ENCOUNTER → 2023-07-18 06:54 | Outpatient (CLI) | payer MEDICARE, OTHER, SELFPAY ==
[2023-07-18 07:48] LABS: Add Manual Diff / Slide Review NO; Basophils Absolute Auto 100 /uL (0-100); Basophils Percent Auto 3.6 % (0-2); Eosinophils Absolute Auto 400 /uL (0-450); Eosinophils Percent Auto 10.7 % (2-4); Hematocrit 38.8 % (36-46); Lymphocytes Absolute Auto 1200 /uL (1100-4500); Lymphocytes Percent Auto 27.9 % (25-40); Mean Corpuscular HGB Conc 33.4 % (30-36); Mean Corpuscular Hemoglobin 32.8 PG (26-34); Mean Corpuscular Volume 98.3 fL (80-100); Monocytes Absolute Auto 400 /uL (0-900); Monocytes Percent Auto 8.7 % (3-14); Neutrophils Absolute Auto 2000 /uL (1500-7000); Neutrophils Percent Auto 49.1 % (50-75); Platelet Count 257 X10^3/uL (150-400); Red Blood Cell Count 3.95 X10^6/uL (4.0-5.2); White Blood Cell Count 4.2 X10^3/uL (4.5-11.0)
[2023-07-18 08:08] LABS: HEMOLYSIS < 15 (0-50); Iron 64 ug/dL (37-170)
[2023-07-18 08:21] LABS: Percent Iron Saturation 24 % (15-50); Total Iron Binding Capacity 265 ug/dL (265-497); Transferrin 241 mg/dL (206-381)
[2023-07-18 08:59] LABS: Vitamin B12 > 1000 pg/mL (239-931)
[2023-07-19 09:12] LABS: Ferritin 22 ng/mL (11-264)
== END ==
LOC: LAB 06:55
PROVIDERS: PCP Nurse Practitioner; Referring Provider Nurse Practitioner; Visit Provider Nurse Practitioner
DX: E61.1 Iron deficiency (principal); E53.8 Deficiency of other specified B group vitamins
CPT/HCPCS: 36415; 82607; 82728; 83540; 83550; 85025

== ENCOUNTER → 2023-11-12 15:12 | Outpatient (CLI) | payer MEDICARE, OTHER, SELFPAY ==
[2023-11-12 15:30] LABS: Add Manual Diff / Slide Review NO; Basophils Absolute Auto 100 /uL (0-100); Basophils Percent Auto 2.3 % (0-2); Eosinophils Absolute Auto 300 /uL (0-450); Eosinophils Percent Auto 7.4 % (2-4); Hematocrit 37.5 % (36-46); Hemoglobin 12.5 g/dL (12.0-16.0); Lymphocytes Absolute Auto 1500 /uL (1100-4500); Mean Corpuscular HGB Conc 33.4 % (30-36); Mean Corpuscular Volume 98.8 fL (80-100); Monocytes Absolute Auto 400 /uL (0-900); Monocytes Percent Auto 8.7 % (3-14); Neutrophils Absolute Auto 2100 /uL (1500-7000); Neutrophils Percent Auto 47.6 % (50-75); Platelet Count 220 X10^3/uL (150-400); Red Blood Cell Count 3.79 X10^6/uL (4.0-5.2); White Blood Cell Count 4.4 X10^3/uL (4.5-11.0)
[2023-11-12 15:57] LABS: HEMOLYSIS < 15 (0-50); Iron 79 ug/dL (37-170)
[2023-11-12 16:09] LABS: Percent Iron Saturation 33 % (15-50); Total Iron Binding Capacity 239 ug/dL (265-497); Transferrin 189 mg/dL (206-381)
[2023-11-12 16:38] LABS: Ferritin 41 ng/mL (11-264)
[2023-11-12 16:52] LABS: Vitamin B12 956 pg/mL (239-931)
== END ==
LOC: LAB 15:13
PROVIDERS: PCP Nurse Practitioner; Referring Provider Nurse Practitioner; Visit Provider Nurse Practitioner
DX: E61.1 Iron deficiency (principal)
CPT/HCPCS: 82607; 82728; 83540; 83550; 85025

== ENCOUNTER → 2024-01-07 13:01 | Outpatient (CLI) | payer MEDICARE, OTHER, SELFPAY ==
--- NOTE | 2024-01-07 13:02 | DI.MG.S_ITS ---
BILATERAL DIGITAL SCREENING MAMMOGRAM 3D/2D WITH CAD: 01/07/2024 CLINICAL: Routine screening. Comparison is made to exams dated: 01/03/2023 mammogram, 12/29/2020 mammogram, and 01/02/2022 mammogram - [facility]. There are scattered areas of fibroglandular density in both breasts (category b / 25%-50% glandular tissue). Current study was also evaluated with a Computer Aided Detection (CAD) system. No significant masses, calcifications, or other findings are seen in either breast. There has been no significant interval change. IMPRESSION: NEGATIVE There is no mammographic evidence of malignancy. A 1 year screening mammogram is recommended. Based on the Tyrer Cuzick model (a risk assessment model) the patient's lifetime risk is 4.4% and her 10 year risk is 3.0%. According to the ACR, ACS, and NCCN guidelines, an annual breast MRI exam along with mammogram is recommended if the patient's lifetime risk is 20% or greater. This exam was interpreted at Station ID: [id number]. NOTE: For mammograms, a report in lay terms will be sent to the patient. Approximately 15% of breast malignancies will not be visualized mammographically. In the management of a palpable breast mass, a negative mammogram must not discourage biopsy of a clinically suspicious lesion. Electronically Signed By: David cline/murray:01/07/2024 16:34:30 letter sent: Normal Exam ACR BI-RADS Category 1: Negative 3341F
== END ==
PROVIDERS: PCP Nurse Practitioner; Referring Provider Nurse Practitioner; Visit Provider Nurse Practitioner
DX: Z12.31 Encounter for screening mammogram for malignant neoplasm of breast (principal); R92.323 Mammographic fibroglandular density, bilateral breasts
CPT/HCPCS: 77063; 77067

== ENCOUNTER → 2024-01-23 10:23 | Outpatient (CLI) | payer MEDICARE, OTHER, SELFPAY ==
[2024-01-23 11:12] LABS: Add Manual Diff / Slide Review NO; Basophils Absolute Auto 100 /uL (0-100); Basophils Percent Auto 2.1 % (0-2); Eosinophils Absolute Auto 500 /uL (0-450); Eosinophils Percent Auto 8.7 % (2-4); Hematocrit 37.9 % (36-46); Hemoglobin 12.7 g/dL (12.0-16.0); Lymphocytes Absolute Auto 1400 /uL (1100-4500); Lymphocytes Percent Auto 26.4 % (25-40); Mean Corpuscular HGB Conc 33.6 % (30-36); Mean Corpuscular Hemoglobin 33.6 PG (26-34); Mean Corpuscular Volume 100.1 fL (80-100); Monocytes Absolute Auto 300 /uL (0-900); Monocytes Percent Auto 5.3 % (3-14); Neutrophils Absolute Auto 3000 /uL (1500-7000); Neutrophils Percent Auto 57.5 % (50-75); Platelet Count 245 X10^3/uL (150-400); Red Blood Cell Count 3.78 X10^6/uL (4.0-5.2); Red Cell Distribution Width 13.9 % (11.6-14.8); White Blood Cell Count 5.3 X10^3/uL (4.5-11.0)
[2024-01-23 11:37] LABS: Alanine Aminotransferase 17 IU/L (<35); Albumin 3.9 g/dL (3.5-5.0); Albumin Globulin Ratio 1.3 (1.0-2.8); Alkaline Phosphatase 48 U/L (38-126); Aspartate Aminotransferase 34 IU/L (14-36); BUN Creatinine Ratio 16.3 (6-22); Bilirubin Total 0.4 mg/dL (0.2-1.3); Blood Urea Nitrogen 14 mg/dL (7-17); Calcium 9.1 mg/dL (8.4-10.2); Carbon Dioxide 26 mmol/L (22-32); Chloride 106 mmol/L (98-107); Estimated Glomerular Filt Rate > 60 mL/min (>60); Glucose 87 mg/dL (80-110); HEMOLYSIS < 15 (0-50); Potassium 4.3 mmol/L (3.4-5.1); Sodium 138 mmol/L (137-145); Total Protein 6.9 g/dL (6.3-8.2)
[2024-01-23 12:10] LABS: HEMOLYSIS < 15 (0-50); Iron 91 ug/dL (37-170)
[2024-01-23 12:18] LABS: Percent Iron Saturation 36 % (15-50); Total Iron Binding Capacity 256 ug/dL (265-497); Transferrin 203 mg/dL (206-381)
[2024-01-24 12:48] LABS: Ferritin 46 ng/mL (11-264)
== END ==
PROVIDERS: Family Medicine; PCP Nurse Practitioner; Referring Provider Nurse Practitioner; Visit Provider Nurse Practitioner
DX: E61.1 Iron deficiency (principal); K21.9 Gastro-esophageal reflux disease without esophagitis; K51.90 Ulcerative colitis, unspecified, without complications
CPT/HCPCS: 36415; 80053; 82728; 83540; 83550; 85025

== ENCOUNTER → 2024-01-28 09:23 | Outpatient (CLI) | payer MEDICARE, OTHER, SELFPAY ==
--- NOTE | 2024-01-28 10:00 | DI.US.S_ITS ---
PROCEDURE: US ABDOMEN COMPLETE INDICATIONS: abd pain TECHNIQUE: Real-time scanning was performed of the abdominal and retroperitoneal organs, with image documentation. COMPARISON: None. FINDINGS: Liver: The liver is normal in size with the right hepatic lobe measuring 12.7 cm in the craniocaudal dimension. The liver is hyperechoic in echotexture. Gallbladder: Within normal limits. The wall measures 1.3 mm in thickness. No cholelithiasis. Biliary ducts: Intrahepatic bile ducts are non-dilated. Extrahepatic bile duct caliber measures 6.6 mm. Normal is 6-7 mm or less in diameter, or 10 mm or less post-cholecystectomy. Pancreas: Not identified due to overlying bowel gas Spleen: Spleen is normal in size and homogeneous in echotexture. Kidneys: Kidneys are normal in size and echotexture. Right kidney measures 8.6 cm long; left kidney measures 8.0 cm long. No hydronephrosis or nephrolithiasis. No solid masses. Aorta: Visualized aorta is normal in caliber at less than 3 cm. Iliacs: Proximal common iliac arteries are normal in caliber at less than 2.5 cm. IVC: Intrahepatic inferior vena cava is patent. Miscellaneous: No free abdominal fluid. IMPRESSION: 1. Hepatic steatosis versus underlying hepatocellular disease. 2. No sonographic evidence of cholelithiasis or acute cholecystitis. 3. No sonographic evidence of hydronephrosis. Dictated by: Will Scales M.D. on 01/28/2024 at 15:58 Approved by: Will Scales M.D. on 01/28/2024 at 16:04
== END ==
PROVIDERS: PCP Nurse Practitioner; Referring Provider Family Medicine; Visit Provider Family Medicine
DX: R10.9 Unspecified abdominal pain (principal); R14.0 Abdominal distension (gaseous)
CPT/HCPCS: 76700

== ENCOUNTER → 2024-06-22 12:39 | Outpatient (CLI) | payer MEDICARE, OTHER, SELFPAY ==
--- NOTE | 2024-06-22 12:41 | DI.RAD.S_ITS ---
PROCEDURE: XR DEXA AXIAL SKELETON INDICATIONS: post menopausal osteoporosis COMPARISON: [facility], CR, XR DEXA AXIAL SKELETON, 06/20/2022, 12:52. FINDINGS: Lumbar Spine: Bone mineral density 0.930 g/cm2, T score -0.9. There is interval 4.7% increase in total lumbar spine bone mineral density. Left Hip: Bone mineral density 0.692 g/cm2, T score -2.0. There is interval 3.3% increase in left total hip bone mineral density. Left Femoral Neck: Bone mineral density 0.593 g/cm2, T score -2.3. There is interval 1.2% increase in left femoral neck bone mineral density. Right Hip: Bone mineral density 0.694 g/cm2, T score -2.0. There is interval 2.3% decrease in right total hip bone mineral density. Right Femoral Neck: Bone mineral density 0.564 g/cm2, T score -2.6. There is interval 1% decrease in right femoral neck bone mineral density. Fracture Risk Calculation (when applicable): 10-year fracture risk of a major osteoporotic fracture 15 percent and of a hip fracture 4.4 percent. (T score greater or equal to -1.0 to: NORMAL) (T score from -1.1 to -2.4: OSTEOPENIA) (T score less than or equal to -2.5: OSTEOPOROSIS) IMPRESSION: Osteoporosis. Follow-up guidelines as follows: Osteoporosis: Consider a repeat DEXA and Vertebral Fracture Assessment (VFA) exam in 2 years or sooner if medically necessary, to reassess this patient's status. Osteopenia: Consider a repeat DEXA in 2-3 years to reassess this patient's status, or if there is a new clinical indication. Normal: Consider a repeat DEXA in 5 years or sooner, or if there is a new clinical indication. All treatment decisions require clinical judgment and consideration of individual patient factors, including patient preferences, comorbidities, previous drug use, risk factors not captured in the FRAX model (e.g., frailty, falls, vitamin D deficiency, increased bone turnover, interval significant decline in bone density ) and possible under- or over-estimation of fracture risk by FRAX. In addition, the NOF Guide recommends that FDA-approved medical therapies be considered in postmenopausal women and men age >= 50 years with a: * Hip or vertebral (clinical or morphometric) fracture * T-score of <=-2.5 at the spine or hip * Ten-year fracture probability by FRAX of >= 3% for hip fracture or >=20% for major osteoporotic fracture. People with diagnosed cases of osteoporosis or at high risk for fracture should have regular bone mineral density tests. For patients eligible for Medicare, routine testing is allowed once every 2 years. The testing frequency can be increased to one year for patients who have rapidly progressing disease, those who are receiving or discontinuing medical therapy to restore bone mass, or have additional risk factors. Dictated by: Cruz Arnold M.D. on 06/22/2024 at 15:00 Approved by: Cruz Arnold M.D. on 06/22/2024 at 15:05
== END ==
PROVIDERS: PCP Registered Nurse Diabetes Educator; Referring Provider Nurse Practitioner; Visit Provider Nurse Practitioner
DX: M81.0 Age-related osteoporosis without current pathological fracture (principal); N95.1 Menopausal and female climacteric states
CPT/HCPCS: 77080

== ENCOUNTER → 2025-01-07 11:07 | Outpatient (CLI) | payer MEDICARE, OTHER, SELFPAY ==
--- NOTE | 2025-01-07 11:08 | DI.MG.S_ITS ---
MM screening mammo BI: 01/07/2025. BI-RADS: 1 CLINICAL: 74-year old female for bilateral screening mammogram. Tyrer-Cuzick lifetime risk of 1.2%. No personal or first-degree family history of breast cancer. The patient had a prior left breast biopsy. PRIOR EXAMS 01/07/2024, 01/03/2023, 01/02/2022. MAMMOGRAPHY TECHNIQUE: 2D and 3D (tomosynthesis) digital mammographic views obtained, with additional images as needed for full coverage. Current study was also evaluated with a Computer Aided Detection (CAD) system. DENSITY B. There are scattered areas of fibroglandular density. MAMMOGRAPHY FINDINGS Bilateral: No suspicious mass, asymmetry, microcalcification, or other abnormality seen. No significant change from comparison. IMPRESSION: * No evidence of malignancy. RECOMMENDATIONS Bilateral * Annual screening mammography. OVERALL ASSESSMENT CATEGORY BI-RADS-1: Negative. The [employer] recommends annual screening mammography beginning at age 40 for women with average risk of breast cancer. ELECTRONICALLY SIGNED: Kayley Winchester M.D. on 01/07/2025 at 11:14:48 PM PT Interpreting Station ID: [id number]
== END ==
PROVIDERS: PCP Registered Nurse Diabetes Educator; Referring Provider Registered Nurse Diabetes Educator; Visit Provider Registered Nurse Diabetes Educator
DX: Z12.31 Encounter for screening mammogram for malignant neoplasm of breast (principal)
CPT/HCPCS: 77063; 77067

== ENCOUNTER → 2025-01-26 07:06 | Outpatient (CLI) | payer MEDICARE, OTHER, SELFPAY ==
[2025-01-26 07:43] LABS: Hematocrit 35.8 % (36-46); Hemoglobin 12.0 g/dL (12.0-16.0); Mean Corpuscular HGB Conc 33.6 % (30-36); Mean Corpuscular Hemoglobin 32.6 PG (26-34); Mean Corpuscular Volume 96.9 fL (80-100); Platelet Count 225 X10^3/uL (150-400)
[2025-01-26 09:04] LABS: HEMOLYSIS < 15 (0-50); Iron 67 ug/dL (37-170)
[2025-01-26 09:07] LABS: Alanine Aminotransferase 14 IU/L (<35); Albumin 3.8 g/dL (3.5-5.0); Albumin Globulin Ratio 1.5 (1.0-2.8); Alkaline Phosphatase 62 U/L (38-126); Blood Urea Nitrogen 19 mg/dL (7-17); Calcium 9.0 mg/dL (8.4-10.2); Carbon Dioxide 28 mmol/L (22-32); Chloride 105 mmol/L (98-107); Cholesterol 202 mg/dL (140-199); Estimated Glomerular Filt Rate > 60 mL/min (>60); Globulin 2.5 g/dL (1.7-4.1); Glucose 99 mg/dL (70-99); HDL Cholesterol 67 mg/dL (40-60); HEMOLYSIS < 15 (0-50); Potassium 4.1 mmol/L (3.4-5.1); Sodium 138 mmol/L (137-145); Total Protein 6.3 g/dL (6.3-8.2); Triglycerides 66 mg/dL (35-150)
[2025-01-26 09:15] LABS: Percent Iron Saturation 25 % (15-50); Total Iron Binding Capacity 273 ug/dL (265-497); Transferrin 221 mg/dL (206-381)
[2025-01-26 09:30] LABS: TSH w/ Reflex to FT4 4.28 uIU/mL (0.47-4.68)
[2025-01-26 09:36] LABS: Ferritin 36 ng/mL (11-264)
[2025-01-26 09:48] LABS: Vitamin B12 276 pg/mL (239-931)
== END ==
PROVIDERS: PCP Registered Nurse Diabetes Educator; Referring Provider Registered Nurse Diabetes Educator; Visit Provider Registered Nurse Diabetes Educator
DX: E78.5 Hyperlipidemia, unspecified (principal); E61.1 Iron deficiency; D64.9 Anemia, unspecified; K51.90 Ulcerative colitis, unspecified, without complications; M81.0 Age-related osteoporosis without current pathological fracture
CPT/HCPCS: 36415; 80053; 80061; 82607; 82728; 83540; 83550; 84443; 85027

== ENCOUNTER → 2025-02-03 14:13 | Outpatient (CLI) | payer MEDICARE, OTHER, SELFPAY ==
--- NOTE | 2025-02-03 14:14 | DI.RAD.S_ITS ---
PROCEDURE: XR LUMBAR SPINE 2-3V INDICATIONS: Low back pain x 8 months TECHNIQUE: 3 views of the lumbar spine were acquired. COMPARISON: None. FINDINGS: Lumbar spine curvature and alignment: Mild scoliotic curve appreciated. Bones: There are no osseous abnormalities. Disc spaces: Severe L2-3 L3-4 moderate L4-5 L5-S1 degenerative disc disease noted. There is moderate L4-5 L5-S1 degenerative facet disease Soft tissues: No soft tissue swelling, calcification or mass. IMPRESSION: Degeneration Dictated by: Isaiah Sousa M.D. on 02/04/2025 at 11:21 Approved by: Isaiah Sousa M.D. on 02/04/2025 at 11:22
== END ==
PROVIDERS: PCP Registered Nurse Diabetes Educator; Referring Provider Registered Nurse Diabetes Educator; Visit Provider Registered Nurse Diabetes Educator
DX: M51.369 Other intervertebral disc degeneration, lumbar region without mention of lumbar back pain or lower extremity pain (principal); M51.379 Other intervertebral disc degeneration, lumbosacral region without mention of lumbar back pain or lower extremity pain; M54.50 Low back pain, unspecified
CPT/HCPCS: 72100

== ENCOUNTER → 2025-05-28 08:24 | Outpatient (CLI) | payer MEDICARE, OTHER, SELFPAY ==
[2025-05-28 08:58] LABS: Hematocrit 37.1 % (36-46); Hemoglobin 12.4 g/dL (12.0-16.0); Mean Corpuscular HGB Conc 33.3 % (30-36); Mean Corpuscular Hemoglobin 31.4 PG (26-34); Mean Corpuscular Volume 94.3 fL (80-100); Platelet Count 224 X10^3/uL (150-400)
[2025-05-28 11:50] LABS: Vitamin B12 811 pg/mL (239-931)
== END ==
PROVIDERS: PCP Registered Nurse Diabetes Educator; Referring Provider Registered Nurse Diabetes Educator; Visit Provider Registered Nurse Diabetes Educator
DX: D64.9 Anemia, unspecified (principal); N18.30 Chronic kidney disease, stage 3 unspecified
CPT/HCPCS: 36415; 82607; 85027